=== PATIENT | female | born 1955 | race Caucasian/White ===

== ENCOUNTER 2023-02-27 15:52 | Emergency (ER) | payer OTHER ==
[2023-02-27 16:30] VITALS: BP 125/69; PULSE 68; RESP 19; TEMP 97.8; BMI 30.1
== END 2023-02-27 19:07 | disposition home or self-care (01) ==
LOC: JER 15:52
PROC: 0RSJXZZ Reposition Right Shoulder Joint, External Approach (ICD-10-PCS; principal; 2023-02-27)
DX: S42.201A Unspecified fracture of upper end of right humerus, initial encounter for closed fracture (principal); W01.0XXA Fall on same level from slipping, tripping and stumbling without subsequent striking against object, initial encounter; Y99.0 Civilian activity done for income or pay
CPT/HCPCS: 73030-TC-RT-FY; 99283-25